=== PATIENT | female | born 1955 | race Caucasian/White ===

== ENCOUNTER → 2016-12-27 09:34 | Outpatient (CLI) | payer MEDICARE ==
[2015-12-19 09:19] VITALS: BMI 35.2
[~2016-12-27 09:34] MED LIST: BENZONATATE200 MG PO; CARAFATE1 G/10 ML PO; CARDIZEM60 MG PO; CATAPRES0.1 MG PO; DALIRESP500 MCG PO; HCTZ25 MG PO; IPRAT-ALBUT 0.5-3 ML UPD; LEVAQUIN500 MG PO; MAXITROL EYE DRO5 ML EACH EYE; MUCINEX DM ER1 EAC1 PO; NYAMYC60 GM TP; PRILOSEC20 MG PO; PROAIR HFA8.5 GM INH; PULMICORT0.5 MG/21 UPD; RESTASIS EYE DR30 EA EACH EYE; SINGULAIR10 MG PO; STERAPRED DS 1010 MG PO; VASOTEC20 MG PO
== END | disposition home or self-care (01) ==
LOC: D.RT 09:34
DX: J44.9 Chronic obstructive pulmonary disease, unspecified (principal)

== ENCOUNTER → 2019-07-11 12:45 | Outpatient (CLI) | payer MEDICARE, MEDICAID ==
[2015-12-19 09:19] VITALS: BMI 35.2
== END | disposition home or self-care (01) ==
LOC: D.RT 02-28 14:00 → D.RAD 02-28 15:00 → D.RT 03-14 08:00
PROVIDERS: ATTEND Internal Medicine Pulmonary Disease
DX: J44.9 Chronic obstructive pulmonary disease, unspecified (principal)